=== PATIENT | female | born 1955 | race Caucasian/White ===

== ENCOUNTER 2020-07-15 09:57 | Emergency (ER) | payer OTHER, SELFPAY ==
[2020-07-15 10:04] VITALS: BP 160/77; PULSE 80; RESP 16; TEMP 36.3; O2SAT 98
--- NOTE | 2020-07-15 10:15 | DI.US_ITS ---
EXAM: US LOWER EXTREMITY VENOUS LT CLINICAL HISTORY: Left popliteal pain, R/O DVT vs bakers cyst. TECHNIQUE: Ultrasound performed using standard protocol. COMPARISON: No exams were available for comparison FINDINGS: Duplex venous ultrasound was performed according to the usual protocol. The deep veins are freely com pressible throughout and there is normal flow augmentation with manual calf compression. 2D and Doppl er evaluation are unremarkable. Note is made of an approximately 23 millimeter in greatest diameter fluid collection in the popliteal fossa consistent with a small Mckoy's cyst. IMPRESSION: No evidence of deep venous thrombosis of the left lower extremity. DATA REPOSITORY:
--- NOTE | 2020-07-15 10:15 | DI.RAD_ITS ---
EXAM: XR FOOT RT LIMITED CLINICAL HISTORY: Dorsal foot pain TECHNIQUE: COMPARISON: CR XR ANKLE RT COMPLETE from 07/15/2020 FINDINGS: Three views of the ankle and two views of the foot were obtained. The ankle mortise appears well brynn ntained. No evidence of fracture or dislocation involving the ankle. There is a prominent osteophyt e of the site of attachment of the plantar fascia on the calcaneus. There are moderate midfoot joint degenerative changes and moderate degenerative changes involving the IP joints of foot. No other noam ny or soft tissue abnormality seen.. IMPRESSION: RADIATION DOSE DELIVERED: Total DLP
--- NOTE | 2020-07-15 10:22 | ED.GENADUL_ITS ---
Discharge Plan Disposition Patient Disposition: HOME Condition: Stable Discharge Details Clinical Impression: Synovial cyst of popliteal space [Mckoy], left knee, Degenerative arthritis of right foot Primary Care Provider: Terra,Local ED Provider: Jennifer Guthrie Home Meds and New Rx's Prescriptions: Continued citalopram 10 mg Tablet 10 mg PO DAILY RF: 0 lisinopril 20 mg Tablet 20 mg PO DAILY RF: 0 levothyroxine 112 mcg Tablet 112 mcg PO DAILY RF: 0 Discharge Instructions Instructions: Osteoarthritis (ED), Leg Pain (ED) Additional Instructions: Try diclofenac topical cream or similar [id number] to your foot and knee. Follow up with primary care provider in 3-5 days. Return to ED sooner if any worsening or concerns. Increase oral fluids. Please take Tylenol or Ibuprofen with food every 4-6 hours as needed for pain and swelling. Wear walking boot as needed for comfort and while ambulatory. Use Giovanny wrap to left knee, alternate ice and heat. Thank you. You are placed on care management list they will assist you to establish care with primary care provider. You should be hearing from them in the next 2 to 3 days. Discharge Data Discharge Date/Time-TO BE ENTERED AT DEPARTURE: 07/15/20 11:48 Medical Decision Making 64 year old female presents to ED with right foot and ankle pain and left popliteal pain x month. Just moved to area, no PCP. She has no past medical history of DVT denies any known injuries. Pain gets worse with weightbearing to the right foot. Left popliteal knee pain gets worse with prolonged sitting. Negative Homans' sign. Denies any chest pain shortness of breath or any other complaints at this time. She has a past medical history of hypertension, hypothyroidism At this time x-ray of right foot and ankle ordered, ultrasound Doppler left lower extremity rule out DVT or Mckoy's cyst. Differential diagnosis includes but not limited to occult fracture, sprain, DVT, Mckoy's cyst. Patient was placed on care management list for PCP establishment. EXAM: XR FOOT RT LIMITED CLINICAL HISTORY: Dorsal foot pain TECHNIQUE: COMPARISON: CR XR ANKLE RT COMPLETE from 07/15/2020 FINDINGS: Three views of the ankle and two views of the foot were obtained. The ankle mortise appears well maintained. No evidence of fracture or dislocation involving the ankle. There is a prominent osteophyte of the site of attachment of the plantar fascia on the calcaneus. There are moderate midfoot joint degenerative changes and moderate degenerative changes involving the IP joints of foot. No other bony or soft tissue abnormality seen.. 1054: Preliminary result received from diagnostic imaging negative for DVT, 2.3 cm Mckoy's cyst. EXAM: US LOWER EXTREMITY VENOUS LT CLINICAL HISTORY: Left popliteal pain, R/O DVT vs bakers cyst. TECHNIQUE: Ultrasound performed using standard protocol. COMPARISON: No exams were available for comparison FINDINGS: Duplex venous ultrasound was performed according to the usual protocol. The deep veins are freely compressible throughout and there is normal flow augmentation with manual calf compression. 2D and Doppler evaluation are unremarkable. Note is made of an approximately 23 millimeter in greatest diameter fluid collection in the popliteal fossa consistent with a small Mckoy's cyst. IMPRESSION: No evidence of deep venous thrombosis of the left lower extremity. Discussed results of imaging with patient she verbalizes understanding. Discussed for primary care provider, placed patient on care management list to help establish PCP. Patient given Avelox to her right foot and ankle discussed degenerative findings, Giovanny wrap placed on left knee discussed anti-inflammatories and follow- up with PCP. HPI General Mode of arrival: ambulatory . Date/Time Provider Initiated Documentation: 07/15/20 10:11 . Limitations to Documentation: no limitations . Information obtained by: patient . HPI Narrative: 64 year old female presents to ED with right foot and ankle pain and left popliteal pain x month. Just moved to area, no PCP. She has no past medical history of DVT denies any known injuries. Pain gets worse with weightbearing to the right foot. Left popliteal knee pain gets worse with prolonged sitting. Negative Homans' sign. Denies any chest pain shortness of breath or any other complaints at this time. She has a past medical history of hypertension, hypothyroidism Related Data Home Medications Medication Instructions Recorded Confirmed citalopram 10 mg PO DAILY 07/15/20 07/15/20 levothyroxine 112 mcg PO DAILY 07/15/20 07/15/20 lisinopril 20 mg PO DAILY 07/15/20 07/15/20 Allergies Allergy/AdvReac Type Severity Reaction Status Date / Time No Known Allergies Allergy Unverified 07/15/20 10:10 General Stated Complaint: Orthopedic VERITO: 4 Review of Systems Narrative: Constitutional: Negative for weight loss, alert and oriented, well groomed, normal body habitus, appears comfortable. HEENT: Denies trauma, headaches, blurry vision, nasal discharge, sore throat, trouble swallowing. Chest: Denies chest pain, palpitations, irregular rhythm, hypertension. Respiratory: Denies Shortness of breath, cough, hemoptysis. GI: Denies abdominal pain, nausea, vomiting, diarrhea, constipation. : Denies dysuria, hematuria, flank pain, rectal bleeding. Neuro: Denies dizziness, blurry vision, weakness, syncope, headache or facial numbness. Hematologic: Denies easy bruising, intolerance to heat or cold, hair loss. [facility] Social History Smoking/Tobacco Use Status: Never Smoking risk assessment performed?: Yes Alcohol Intake: never Substance use type: does not use Do you feel safe at home: Yes Do you feel safe in your relationship?: Yes Exam Narrative Exam Narrative: Constitutional: Alert and oriented x3. Appears stated age. Normal body habitus. Head: Normocephalic, no trauma. Eyes: Pupils PERRLA, Red reflex noted, EOM's intact. Eyelids symmetrical without lesions, discharge, or swelling. ENT: Bilateral TM's WNL, External ear normal to inspection, no mastoid TTP, swelling, or erythema, Nasal turbinates WNL, no nasal discharge. Normal dentition, Posterior pharynx WNL, no exudate. Chest: RRR, Normal S1, S2, distal pulses intact. Resp: Lungs clear to auscultation bilaterally, no wheezes, rales, or rhonchi. Musculoskeletal: Normal gait, 5/5 strength to all four extremities. Negative Homans' sign, dorsal pedal pulses intact bilaterally. No erythema, no appreciable swelling. Skin: No suspicious rashes or lesions. Capillary refill less than 2 sec. Neurologic: Cranial nerves II-XII intact. Alert and oriented x 3. DTR's intact. Hematologic/Lymphatic: No ecchymosis, no lymphadenopathy. Course Vital Signs Vital signs: Vital Signs Temperature 36.3 C L 07/15/20 10:04 Pulse 80 07/15/20 10:04 Respiratory Rate 16 07/15/20 10:04 Blood Pressure 160/77 H 07/15/20 10:04 Pulse Oximetry 98 07/15/20 10:04 Temperature 36.3 C L 07/15/20 10:04 Temperature Source Skin 07/15/20 10:04 Pulse 80 07/15/20 10:04 Respiratory Rate 16 07/15/20 10:04 Respiratory Effort Non-Labored 07/15/20 10:04 Blood Pressure 160/77 H 07/15/20 10:04 Blood Pressure Position Sitting 07/15/20 10:04 Pulse Oximetry 98 07/15/20 10:04 Oxygen Delivery Method Room Air 07/15/20 10:04 Oxygen Flow Rate 0 07/15/20 10:04 Pain Level 5 07/15/20 10:04
--- NOTE | 2020-07-15 12:19 | NUR.NOTE ---
Nursing Note: Referral given to Care Management for establish care/leg pain, routine time frame with PCP. Diana Kim
== END 2020-07-15 11:48 | disposition home or self-care (01) ==
PROVIDERS: Emergency Provider Registered Nurse Emergency
DX: M71.22 Synovial cyst of popliteal space [Baker], left knee (principal); M19.071 Primary osteoarthritis, right ankle and foot
CPT/HCPCS: 29515; 99285; 73610; 73620; 93971; 99283

== ENCOUNTER 2020-09-26 10:39 | Outpatient (CLI) | payer OTHER, SELFPAY ==
--- NOTE | 2020-09-26 09:45 | DI.RAD_ITS ---
Exam(s) XR KNEE LT 3V AP,LAT,MARGARETH EXAM: XR KNEE LT 3V AP,LAT,MARGARETH CLINICAL HISTORY: L knee pain TECHNIQUE: COMPARISON: No exams were available for comparison FINDINGS: Three views were obtained. There is moderate narrowing of the medial tibiofemoral cartilaginous joint space. There is chondrocalcinosis noted at the tibial femoral joints. There may be narrowing of the cartilaginous joint space of the patellofemoral joint but this is insufficiently visualized on the la teral view. There are moderate marginal osteophytes of the patellofemoral joint and mild marginal ost eophytes of medial and lateral tibiofemoral joints. There may be a small knee joint effusion. IMPRESSION: Degenerative changes predominantly involving medial tibiofemoral joint. RADIATION DOSE DELIVERED: Total DLP
== END 2020-09-26 10:40 | disposition home or self-care (01) ==
LOC: DIORS 10:39
PROVIDERS: PCP Nurse Practitioner Adult Health; Visit Provider Student in an Organized Health Care Education/Training Program
DX: M71.22 Synovial cyst of popliteal space [Baker], left knee (principal); M17.12 Unilateral primary osteoarthritis, left knee; M25.562 Pain in left knee
CPT/HCPCS: 20610; 73562; 99213; J1040

== ENCOUNTER 2020-11-18 11:15 | Outpatient (CLI) | payer OTHER, SELFPAY ==
--- NOTE | 2020-11-18 11:15 | RT.EKG_ITS ---
APPROVED REPORT Exam: Resting ECG Reason for Exam: chest pressure Patient Location: O HR:77 bpm ECG Measurements Heart Rate 77 AXIS NH 167 P 63 QRSd 94 QRS -3 QT 351 T 22 QTc 397 Conclusion Sinus rhythm...normal P axis, V-rate 60- 99
== END 2020-11-18 11:16 | disposition home or self-care (01) ==
LOC: DI.KIM 11:16
PROVIDERS: PCP Nurse Practitioner Adult Health; Visit Provider Internal Medicine
DX: R07.89 Other chest pain (principal)
CPT/HCPCS: 93010

== ENCOUNTER 2020-12-02 01:58 | Outpatient (CLI) | payer OTHER, SELFPAY ==
--- NOTE | 2020-12-02 09:00 | ETT_ITS ---
APPROVED REPORT Exam: Exercise Treadmill Patient Location: Out-Patient Room/Bed: Stress Nurse: Tanna Nelson RN Ordering Provider:CHRISTINA PRIETO, Contact Number: [phone] BMI: 35.50 Indications: Pressure in chest, hypertension, risk factors for cardiac risk Medical History Medical History: HTN, HLD, Hypothyroidism, Increased stress Cardiac Medications: Lisinopril, magnesium Allergies: No known drug allergies Cardiac Risk Factors: HTN, Hyperlipidemia, FHX of CAD, Obesity Previous Cardiac Procedures: None Pretest Chest Pain Characteristics: No chest pain Exercise History: Sedentary Physical Disabilities: L knee and R foot pain. Lung Sounds: Clear to auscultation Heart Sounds: Regular Stress Test Details Test: Exercise stress testing was performed using a Jacoby protocol. Rest Stress HR Resting HR Supine: 79 bpm Max Heart Rate (APMHR): 154 bpm Resting HR Standin bpm Target HR (85% APMHR): 130 bpm Max HR Achieved: 148 bpm % of APMHR: 96 Recovery HR: 88 bpm HR response to stress: Normal HR response to stress BP Resting BP Supine: 140/86 mmHg Resting BP Standin/80 mmHg Max BP: 172/80 mmHg Recovery BP: 144/80 mmHg BP response to stress: Normal blood pressure response to stress. Comment: patient did not take lisinopril last night. ECG Resting ECG: Sinus Rhythm Ectopy: None Stress ECG: Sinus Tachycardia ST Change: Downsloping ST depression Lead(s): II, III, aVF Stage: [address] Deviation: 2 mm Arrhythmia: None Recovery ECG: Sinus Rhythm Recovery ST Change: Horizontal ST depression Lead(s): II, III, aVF Recovery ST Deviation: 1 mm Recovery Arrhythmia: None Clinical Reason for Termination: Chest pain, Target HR Achieved Stress Symptoms: Chest pain, Dyspnea, General Fatigue Exercise duration: 6 min00 sec Highest Stage Reached: Stage 2: 2.5 mph at 12% grade. Exercise capacity: 7.05 METs Humphries Treadmill Score: -9 Rate Pressure Product: [id number] Stress ECG Conclusion 1. The patient exercised for 6 minutes (7 METS). Exercise was stopped due to chest pain and target h eart rate. 2. Heart rate and blood pressure augmented appropriately. 3. During stress the patient developed horizontal/sloping ST depressions in the inferior leads up to 2 mm. These persisted into recovery. Humphries Treadmill Score is -9 which is Moderate risk. Stress Test Summary STAGE Time (mins) Speed (mph) Grade (%) HR BP SYMPTOMS METS Supine 79 140/86 Standing 82 138/80 1 3 1.7 10 129 144/82 4.6 2 6 2.5 12 146 160/78 mild SOB, SpO2 97%. 1/10 chest pressure 7 1 min recovery 132 symptoms resolved 3 min recovery 97 172/80 6 min recovery 92 150/82 9 min recovery 88 144/80 1/10 chest pressure described as a localized left sternal muscle pull occuring at 5:50 just before ending exercise. Treadmill stopped by sterile instrument technician d/t onset of symptoms and patient having reached THR . Pain resolved immediately with rest. Patient did not endorse any orthopedic complaints.
== END 2020-12-02 02:18 ==
PROVIDERS: PCP Nurse Practitioner Adult Health; Visit Provider Internal Medicine
DX: R07.89 Other chest pain (principal); I10 Essential (primary) hypertension; Z91.89 Other specified personal risk factors, not elsewhere classified; E78.5 Hyperlipidemia, unspecified; E03.9 Hypothyroidism, unspecified; E66.9 Obesity, unspecified; Z82.49 Family history of ischemic heart disease and other diseases of the circulatory system; F43.9 Reaction to severe stress, unspecified
CPT/HCPCS: 93016; 93018; 93017

== ENCOUNTER 2021-01-19 02:14 | Outpatient (CLI) | payer OTHER, SELFPAY ==
[2021-01-19 09:28] LABS: ALT 23 U/L (14-59); AST 12 U/L (15-37); Albumin 3.8 g/dL (3.4-5.0); Alkaline Phosphatase 104 U/L (46-116); Anion Gap 4.8 mmol/L (3-11); BUN 31 mg/dL (7-18); Bilirubin, Total 0.3 mg/dL (0.2-1.0); CO2 29.2 mmol/L (21.0-32.0); CREATININE 1.3 mg/dL (0.55-1.02); Calculated LDL 180 mg/dL (<100); Chloride 108 mmol/L (98-107); Cholesterol 254 mg/dL (<200); Estimated GFR 40.98 (mL/min/1.73m2); Glucose 105 mg/dL (74-106); HDL Cholesterol 57 mg/dL (40-60); Potassium 5.6 mmol/L (3.5-5.1); Sodium 142 mmol/L (136-145); TSH (W/Ref FT4) 3.12 uIU/mL (0.36-3.74); Total Protein 7.1 g/dL (6.4-8.2); Triglyceride 89 mg/dL (<150)
[2021-01-19 09:34] LABS: Calcium 12.2 mg/dL (8.5-10.1)
[2021-01-19 09:42] LABS: Vitamin D 25 Total 40.8 ng/mL (30-100)
== END 2021-01-19 02:15 | disposition home or self-care (01) ==
LOC: LBO 02:14
PROVIDERS: PCP Nurse Practitioner Adult Health; Visit Provider Nurse Practitioner Adult Health
DX: E03.9 Hypothyroidism, unspecified; E78.5 Hyperlipidemia, unspecified; I10 Essential (primary) hypertension; F32.9 Major depressive disorder, single episode, unspecified; Z86.39 Personal history of other endocrine, nutritional and metabolic disease; E21.0 Primary hyperparathyroidism
CPT/HCPCS: 36415; 80053; 80061; 82306; 84443